=== PATIENT | male | born 1995 | race Two or more races ===

== ENCOUNTER 2017-08-14 23:08 | Emergency (ER) | payer OTHER ==
[2017-08-14 23:58] VITALS: BP 134/87
[2017-08-15] MEDS ORDERED: CEPHALEXIN 500 MG CAPSULE PO ONE (02:10)
--- NOTE | 2017-08-15 02:17 | ER Document Report ---
ED Extremity Problem, Upper - General Chief Complaint: Wound Recheck Stated Complaint: WOUND CHECK Time Seen by Provider: 08/15/17 02:10 Mode of Arrival: Ambulatory Information source: Patient Notes: 21-year-old male presents to ED for complaint of pain redness and drainage to his right hand. He states he cut it on glass on Wednesday went to the [facility] and they cauterized it and in the last couple days it is started having some drainage. There is minimal redness to the site there is no purulent drainage but there is some serosanguineous drainage. TRAVEL OUTSIDE OF THE [place] IN LAST 30 DAYS: No - HPI Patient complains to provider of: Right, Hand Onset: Other - Wednesday Recent injury: Yes Where: Work Quality of pain: Sharp Severity of pain: Moderate Pain Level: 3 Context: Other - Laceration Associated symptoms: None Exacerbated by: Movement, Exertion Relieved by: Nothing Similar symptoms previously: Yes Recently seen / treated by doctor: Yes Past Medical History - General Information source: Patient - Social History Smoking Status: Never Smoker Cigarette use (# per day): No Chew tobacco use (# tins/day): No Smoking Education Provided: No Frequency of alcohol use: None Drug Abuse: None Occupation: [employer] Lives with: Family Family History: Reviewed & Not Pertinent Patient has suicidal ideation: No Patient has homicidal ideation: No - Past Medical History Cardiac Medical History: Reports: None Pulmonary Medical History: Reports: None EENT Medical History: Reports: None Neurological Medical History: Reports: None Endocrine Medical History: Reports: None Renal/ Medical History: Reports: None Malignancy Medical History: Reports None GI Medical History: Reports: None Musculoskeltal Medical History: Reports None Skin Medical History: Reports None Psychiatric Medical History: Reports: None Traumatic Medical History: Reports: None Infectious Medical History: Reports: None Surgical Hx: Negative Past Surgical History: Reports: None - Immunizations Immunizations up to date: Yes Hx Diphtheria, Pertussis, Tetanus Vaccination: Yes Review of Systems - Review of Systems Notes: Constitutional: [PRESENT: as per HPI. ABSENT: chills, fever(s), headache(s), weight gain, weight loss] Eyes: [ABSENT: visual disturbances] Ears: [ABSENT: hearing changes] Cardiovascular: [ABSENT: chest pain, dyspnea on exertion, edema, orthropnea, palpitations] Respiratory: [ABSENT: cough, hemoptysis] Gastrointestinal: [ABSENT: abdominal pain, constipation, diarrhea, hematemesis, hematochezia, nausea, vomiting] Genitourinary: [ABSENT: dysuria, hematuria] Musculoskeletal: [ABSENT: joint swelling] Integumentary: Patient has a cauterized wound to the right hand. He states that he cut his hand on Wednesday when into the [facility] and they cauterized the wound. There is minimal redness surrounding the wound with some serosanguineous drainage. Neurological: [ABSENT: abnormal gait, abnormal speech, confusion, dizziness, focal weakness, syncope] Psychiatric: [ABSENT: anxiety, depression, homicidal ideation, suicidal ideation ] Endocrine: [ABSENT: cold intolerance, heat intolerance, menstrual abnormalities , polydipsia, polyuria] Hematologic/Lymphatic: [ABSENT: easy bleeding, easy bruising, lymphadenopathy] Physical Exam - Vital signs Vitals: Temp Pulse Resp BP Pulse Ox 97.8 F 58 L 20 134/87 H 100 08/14/17 23:56 08/14/17 23:56 08/14/17 23:56 08/14/17 23:56 08/14/17 23:56 - Notes Notes: PHYSICAL EXAMINATION: GENERAL: Well-appearing, well-nourished and in no acute distress. HEAD: Atraumatic, normocephalic. EYES: Pupils equal round and reactive to light, extraocular movements intact, sclera anicteric, conjunctiva are normal. ENT: Nares patent, oropharynx clear without exudates. Moist mucous membranes. NECK: Normal range of motion, supple without lymphadenopathy LUNGS: Breath sounds clear to auscultation bilaterally and equal. No wheezes rales or rhonchi. HEART: Regular rate and rhythm without murmurs ABDOMEN: Soft, nontender, nondistended abdomen. No guarding, no rebound. No masses appreciated. Musculoskeletal: Normal range of motion, no pitting or edema. No cyanosis. NEUROLOGICAL: Cranial nerves grossly intact. Normal speech, normal gait. Normal sensory, motor exams PSYCH: Normal mood, normal affect. SKIN: Patient has 2 black wounds to the right hand. He states these were cauterized by [facility] on Wednesday. There is minimal redness surrounding the 2 wounds. There is serosanguineous drainage from the larger of the 2 wounds. Course - Re-evaluation Re-evalutation: 08/15/17 02:19 Wounds were cauterized by [facility]. There is minimal drainage with some redness surrounding the cauterized wound. Patient was started on Keflex wound was cleaned with Shur-Clens saline bacitracin applied and covered with Telfa and gauze. Patient was discharged home with a prescription for Keflex and instructions to follow-up with his doctor. Patient verbalized understanding of instructions. - Vital Signs Vital signs: Temp Pulse Resp BP Pulse Ox 97.8 F 58 L 20 134/87 H 100 08/14/17 23:56 08/14/17 23:56 08/14/17 23:56 08/14/17 23:56 08/14/17 23:56 Discharge - Discharge Clinical Impression: Cauterized lacerations to right hand Condition: Stable Disposition: HOME, SELF-CARE Additional Instructions: He was seen in the emergency room this morning for pain and drainage to the wounds to your right hand they were cauterized by [facility] on Wednesday. CEPHALEXIN: The antibiotic you've been prescribed is a member of the cephalosporin class. This type of antibiotic covers a wide variety of infections, including those of the skin, lungs, and urinary tract. It's useful for staph infections. This antibiotic is slightly similar to the penicillin family. In rare cases , a person who is allergic to penicillin will also be allergic to this medication. If you have had a severe allergic reaction to penicillin, and have not taken this antibiotic since that time, notify your doctor. Antibiotics which cover many germs ("broad spectrum" antibiotics) are more likely to cause diarrhea or "yeast" infections. Women prone to vaginal yeast problems may suffer an attack after taking this antibiotic. In infants, oral thrush (white spots "stuck" on the cheek) or yeast diaper rash may result. See your doctor if these problems occur. Call at once if you develop itching, hives , shortness of breath, or lightheadedness. SOAP CLEANSING: Gently wash the wound daily using a mild soap (like Ivory, Phisoderm, Neutrogena). Use warm water, rubbing gently until all debris, ooze, and crusting have been washed from the wound. Allow to dry briefly (about 10 minutes) after cleaning. Repeat this cleansing at least three times a day for the first two days and then once or twice a day. ANTIBIOTIC OINTMENT PROTECTION: Your wounds are such that dressing them is not practical or optional. After cleansing, you should apply a thin coating of antibiotic ointment ( Bacitracin, not Neosporin) to the wounds at least three times daily. This lessens infection risk, and may decrease the amount of scarring. Use a q-tip or dull butter knife, not your finger, to apply this ointment. Any debris or ooze which builds up in the ointment should be gently rubbed off with a sterile gauze pad. Harder crusting may need to be gently scrubbed off with a clean wash cloth with soap and warm water, perhaps applying a warm, wet wash cloth to the wound for ten minutes first. Development of redness, severe itching, or blistering may mean allergy to the ointment. See the doctor. Please follow-up with your doctor Wednesday or Wednesday to ensure these wounds are healing properly. FOLLOW-UP CARE: If you have been referred to a physician for follow-up care, call the physician s office for an appointment as you were instructed or within the next two days. If you experience worsening or a significant change in your symptoms, notify the physician immediately or return to the Emergency Department at any time for re-evaluation. Prescriptions: Cephalexin Monohydrate [Keflex 500 mg Capsule] 500 mg PO QID #20 capsule Forms: Elevated Blood Pressure
== END 2017-08-15 02:20 | disposition home or self-care (01) ==
LOC: ER 23:08
DX: S61.411D Laceration without foreign body of right hand, subsequent encounter (principal); X58.XXXD Exposure to other specified factors, subsequent encounter
CPT/HCPCS: 99282

== ENCOUNTER 2018-02-28 05:19 | Emergency (ER) | payer OTHER ==
[2018-02-28 05:27] VITALS: BP 125/93
[2018-02-28] MEDS ORDERED: ONDANSETRON HCL INJ/PF 4 MG/2 ML SDV IV ONE (05:43)
[2018-02-28] MEDS ORDERED: NORMAL SALINE 1000 ML 1,000 ML IV ONE (05:43)
--- NOTE | 2018-02-28 05:48 | ER Document Report ---
ED Medical Screen (RME) - General Chief Complaint: ETOH Abuse Stated Complaint: ETOH Time Seen by Provider: 02/28/18 05:47 Notes: 22-year-old male with chief complaint of alcohol intoxication and vomiting, states he drank 5 or 6 rum with cranberry juice cups, denies recreational drugs , significant other states he was vomiting, closes eyes, and slumped over the side of the toilet but no head injury. Patient denies headache, reports mild nausea, no other symptoms reported. TRAVEL OUTSIDE OF THE [place] IN LAST 30 DAYS: No Past Medical History - Social History Drug Abuse: None Renal/ Medical History: Denies: Hx Peritoneal Dialysis - Immunizations Immunizations up to date: Yes Hx Diphtheria, Pertussis, Tetanus Vaccination: Yes Physical Exam - Vital signs Vitals: Temp Pulse Resp BP Pulse Ox 97.5 F 82 20 125/93 H 100 02/28/18 05:24 02/28/18 05:24 02/28/18 05:02/28/18 05:02/28/18 05:24 - General General appearance: Appears well In distress: None - Respiratory Respiratory status: No respiratory distress Breath sounds: Normal - Cardiovascular Rhythm: Regular. No: Tachycardia Heart sounds: Normal auscultation, S1 appreciated, S2 appreciated Course - Vital Signs Vital signs: Temp Pulse Resp BP Pulse Ox 97.5 F 82 20 125/93 H 100 02/28/18 05:24 02/28/18 05:24 02/28/18 05:24 02/28/18 05:02/28/18 05:24
[2018-02-28 06:15] LABS: ABSOLUTE EOSINOPHILS # (AUTO) 0.1 10^3/uL (0.0-0.6); ABSOLUTE LYMPHOCYTES (AUTO) 1.8 10^3/uL (0.5-4.7); ABSOLUTE MONOCYTES (AUTO) 0.4 10^3/uL (0.1-1.4); ABSOLUTE NEUT (AUTO) 3.6 10^3/uL (1.7-8.2); BASOPHILS % (AUTO) 0.8 % (0-2); HEMATOCRIT 43.1 % (37.9-51.0); LYMPHOCYTES % (AUTO) 30.4 % (13-45); MEAN CORPUSCULAR HEMOGLOBIN 29.3 pg (27.0-33.4); MEAN CORPUSCULAR HGB CONC 34.9 g/dL (32.0-36.0); MEAN CORPUSCULAR VOLUME 84 fl (80-97); MONOCYTES % (AUTO) 6.2 % (3-13); PLATELET COUNT 175 10^3/uL (150-450); RED BLOOD COUNT 5.13 10^6/uL (4.35-5.55); RED CELL DISTRIBUTION WIDTH 13.3 % (11.5-14.0); SEGMENTED NEUTROPHILS % (AUTO) 60.6 % (42-78); TOTAL CELLS COUNTED % (AUTO) 100 %
--- NOTE | 2018-02-28 06:19 | ER Document Report ---
ED General <USHA GARRIDO - Last Filed: 02/28/18 07:15> - General Mode of Arrival: Ambulatory Information source: Patient TRAVEL OUTSIDE OF THE [place] IN LAST 30 DAYS: No <KATERINA BABCOCK - Last Filed: 02/28/18 07:26> - General Chief Complaint: ETOH Abuse Stated Complaint: ETOH Time Seen by Provider: 02/28/18 05:47 Notes: 22-year-old male who presents to the emergency department today with complaints of EtOH abuse last night. Patient states he does not usually drink EtOH. Patient states he was up last night playing video games with his friend who was stationed to [place] and he was trying to "keep up with him". at bedside states that she was asleep, she woke up to go to the bathroom and found him slumped over in the bathroom. Patient states he thinks he drank about 5-6 cups of hard liquor. Patient states he vomited. Patient states he feels much better now. (KATERINA BABCOCK) Past Medical History - General Information source: Patient - Social History Smoking Status: Never Smoker Cigarette use (# per day): No Frequency of alcohol use: Social Drug Abuse: None Family History: Reviewed & Not Pertinent Patient has suicidal ideation: No Patient has homicidal ideation: No - Medical History Medical History: Negative Renal/ Medical History: Denies: Hx Peritoneal Dialysis Surgical Hx: Negative - Immunizations Immunizations up to date: Yes Hx Diphtheria, Pertussis, Tetanus Vaccination: Yes <KATERINA BABCOCK - Last Filed: 02/28/18 07:26> Review of Systems - Review of Systems Constitutional: See HPI, Other - EtOH abuse EENT: No symptoms reported Cardiovascular: No symptoms reported Respiratory: No symptoms reported Gastrointestinal: See HPI, Vomiting Genitourinary: No symptoms reported Male Genitourinary: No symptoms reported Musculoskeletal: No symptoms reported Skin: No symptoms reported Hematologic/Lymphatic: No symptoms reported Neurological/Psychological: No symptoms reported -: Yes All other systems reviewed and negative <KATERINA BABCOCK - Last Filed: 02/28/18 07:26> Physical Exam <USHA GARRIDO - Last Filed: 02/28/18 07:15> <KATERINA BABCOCK - Last Filed: 02/28/18 07:26> - Vital signs Vitals: Temp Pulse Resp BP Pulse Ox 97.5 F 82 20 125/93 H 100 02/28/18 05:24 02/28/18 05:24 02/28/18 05:24 02/28/18 05:24 02/28/18 05:24 - Notes Notes: Physical Exam: General: Alert, appears well. EtOH odor on breath. Able to give a clear history. HEENT: Normocephalic. Atraumatic. PERRL. Extraocular movements intact. Oropharynx clear. Neck: Supple. Non-tender. Respiratory: No respiratory distress. Clear and equal breath sounds bilaterally. Cardiovascular: Regular rate and rhythm. Abdominal: Normal Inspection. Non-tender. No distension. Normal Bowel Sounds. Back: Non-tender. No deformity or step off. Extremities: Moves all four extremities. Upper extremities: Normal inspection. Normal ROM. Lower extremities: Normal inspection. No edema. Normal ROM. Neurological: Normal cognition. AAOx4. Normal speech. Psychological: Normal affect. Normal Mood. Skin: Warm. Dry. Normal color. (KATERINA BABCOCK) Course - Laboratory Result Diagrams: 02/28/18 06:07 02/28/18 06:07 <USHA GARRIDO - Last Filed: 02/28/18 07:15> - Laboratory Result Diagrams: 02/28/18 06:07 02/28/18 06:07 <KATERINA BABCOCK - Last Filed: 02/28/18 07:26> - Vital Signs Vital signs: Temp Pulse Resp BP Pulse Ox 97.5 F 82 20 125/93 H 100 02/28/18 05:24 02/28/18 05:24 02/28/18 05:24 02/28/18 05:24 02/28/18 05:24 - Laboratory Laboratory results interpreted by me: 02/28/18 06:07 Sodium 150.9 H Chloride 110 H Discharge <USHA GARRIDO - Last Filed: 02/28/18 07:15> <KATERINA BABCOCK - Last Filed: 02/28/18 07:26> - Discharge Clinical Impression: Alcohol intoxication Qualifiers: Complication of substance-induced condition: uncomplicated Qualified Code(s): F10.920 - Alcohol use, unspecified with intoxication, uncomplicated Nausea and vomiting Qualifiers: Vomiting type: unspecified Vomiting Intractability: non-intractable Qualified Code(s): R11.2 - Nausea with vomiting, unspecified Condition: Stable Disposition: HOME, SELF-CARE Additional Instructions: Acute Alcohol Intoxication Your evaluation revealed high levels of alcohol. You can from drinking a large amount of alcohol rapidly! Further, there's the risk of falls , traffic accidents, and fights. A high portion (about 50 percent) of the serious injuries seen in hospital emergency rooms are caused by alcohol. Alcohol overdosage is usually due to an underlying emotional or psychiatric problem. You may benefit from counselling. You should be watched at home for the next several hours by someone who has not been drinking. Get extra fluids for the next 24 hours. Call the doctor if there is repeated vomiting, increasing headache, decreasing level of alertness, or any other worsening. Drink plenty of fluids today. Take Aleve or ibuprofen for headache if needed. Get plenty of rest and sleep today. RETURN TO THE EMERGENCY ROOM IF ANY NEW OR WORSENING SYMPTOMS. Scribe Attestation: 02/28/18 06:39 I personally performed the services described in the documentation, reviewed and edited the documentation which was dictated to the scribe in my presence, and it accurately records my words and actions. (USHA GARRIDO) Scribe Documentation - Scribe Written by Ana Lilia:: Ana Lilia Fischer, 02/28/201819 acting as scribe for :: Kelsy <KATERIAN BABCOCK - Last Filed: 02/28/18 07:26>
[2018-02-28] MEDS ORDERED: DEXTROSE 5%-LACTATED RINGERS 1,000 ML IV ONE (06:32)
[2018-02-28 06:36] LABS: ALCOHOL 147 mg/dL (NONE DETECTED); ANION GAP 14 (5-19); BLOOD UREA NITROGEN 10 mg/dL (7-20); CALCIUM 9.6 mg/dL (8.4-10.2); CARBON DIOXIDE 27 mmol/L (22-30); CHLORIDE 110 mmol/L (98-107); GLUCOSE 106 mg/dL (75-110); POTASSIUM 3.8 mmol/L (3.6-5.0); SODIUM 150.9 mmol/L (137-145)
== END 2018-02-28 07:40 | disposition home or self-care (01) ==
LOC: ER 05:19
DX: R11.2 Nausea with vomiting, unspecified (principal); F10.920 Alcohol use, unspecified with intoxication, uncomplicated
CPT/HCPCS: 99284; 96361; 96374; 36415; 80307; 85025; 80048; J2405; J7030